=== PATIENT | female | born 1970 | race Hispanic/Latino ===

== ENCOUNTER 2022-01-16 18:39 | Emergency (ER) | payer SELFPAY ==
[2022-01-16 20:43] VITALS: BP 132/78
--- NOTE | 2022-01-16 21:27 | Emergency Department Report ---
ED Rash HPI - HPI Chief Complaint: Skin Rash Stated Complaint: POSSIBLE SHINGLES Duration: 3 Days Location: Neck, Chest, Back, Abdomen Rash Symptoms: Yes Itching, No Facial Swelling, No Tongue/Oral Swelling, No Breathing Difficulties, No Choking Sensation, No Wheezing/Dyspnea, No Peeling, No Blistering, No Fever, No Lightheaded, No Malaise, No Myalgias Severity: moderate Other History: 51-year-old female sent to the ED with rash noted to her her chest abdomen and back area x3 days. She states that her son has shingles. Patient states that she has been using [id number] Benadryl for the itching with relief. She states that she had chickenpox as a child. She states that rash is painful and has been taking Tylenol for the pain. No acute distress noted. No ill appearance noted. Patient denies any headache, fever, paresthesia or photophobia. ED Review of Systems ROS: Stated complaint: POSSIBLE SHINGLES Other details as noted in HPI Constitutional: denies: chills, fever Eyes: denies: eye pain, eye discharge, vision change ENT: denies: ear pain, throat pain Respiratory: denies: cough, shortness of breath, wheezing Cardiovascular: denies: chest pain, palpitations Endocrine: no symptoms reported Gastrointestinal: denies: abdominal pain, nausea, diarrhea Genitourinary: denies: urgency, dysuria, discharge Musculoskeletal: denies: back pain, joint swelling, arthralgia Skin: rash, lesions Neurological: denies: headache, weakness, paresthesias Psychiatric: denies: anxiety, depression Hematological/Lymphatic: denies: easy bleeding, easy bruising ED Past Medical Hx - Social History Smoking Status: Current Every Day Smoker Substance Use Type: Alcohol - Medications Home Medications: Home Medications Medication Instructions Recorded Confirmed Last Taken Type Valacyclovir HCl [Valacyclovir] 1,000 mg PO TID 7 Days #21 tab 01/16/22 Unknown Rx Rash Exam - Exam General: Vital signs noted. No distress. Alert and acting appropriately. HEENT: No Periorbital Edema, No Conjuctival Injection, No Chemosis, No Perioral Edema, No Tongue Edema, No Uvular Edema, No Compromised Airway, No Drooling Lungs: Yes Good Air Exchange (Normal Breath Sounds), No Wheezes, No Ronchi, No Stridor, No Cough, No Labored Respirations, No Retractions, No Use of Accessory Muscles, No Other Abnormal Lung Sounds Heart: Yes Regular, No Murmur Skin: Yes Maculopapular Rash, Yes Erythema, No Urticarial Rash, No Morbilliform rash, No Bulla(e), No Excoriations, No Weeping, No Tenderness, No Edema, No Encrustations, No Other Other: Positive: Abdomen Normal, Neurologic Normal, Musculoskeletal Normal ED Course Vital Signs 01/16/22 20:09 Temperature 98.8 F Pulse Rate 89 Respiratory 18 Rate Blood Pressure 132/78 O2 Sat by Pulse 97 Oximetry ED Medical Decision Making - Medical Decision Making 51-year-old female sent to the ED with rash noted to her her chest abdomen and back area x3 days. She states that her son has shingles. Patient states that she has been using [id number] Benadryl for the itching with relief. She states that she had chickenpox as a child. She states that rash is painful and has been taking Tylenol for the pain. No acute distress noted. No ill appearance noted. Patient denies any headache, fever, paresthesia or photophobia. Physical examination show vesicle on the upper and trunks of the abdomen ,chest, and the back area. Rechecked the patient is resting quietly quietly and comfortable and feeling better. I discussed the results of diagnostic study, my clinical impression and the plan for further treatment with the patient. Patient agrees with plan and discharge at this present time. All question addressed. I have given the patient instruction regarding a diagnosis ,expectation ,follow- up and return precaution. I explained to the patient that emergent condition may arise and to return to the ED for new worsen and any new persisting condition. I have explained the importance of following up with the primary care physician or referral physician listed below has instructed. The patient verbalized understanding of discharge instruction. Critical care attestation.: If time is entered above; I have spent that time in minutes in the direct care of this critically ill patient, excluding procedure time. ED Disposition Clinical Impression: Shingles rash Qualifiers: Herpes zoster complications: unspecified herpes zoster complication Qualified Code(s): B02.8 - Zoster with other complications Disposition: HOME / SELF CARE / HOMELESS Is pt being admited?: No Does the pt Need Aspirin: No Condition: Stable Instructions: Shingles, [id number] Additional Instructions: Take medication as prescribed Return to the ED for any worsening symptom Prescriptions: Valacyclovir HCl [Valacyclovir] 1,000 mg PO TID 7 Days #21 tab Referrals: [facility] [Provider Group] - 3-5 Days Forms: Work/School Release Form(ED)
== END 2022-01-16 22:18 | disposition home or self-care (01) ==
LOC: ED 18:39
DX: B02.9 Zoster without complications (principal); F17.200 Nicotine dependence, unspecified, uncomplicated; Z72.89 Other problems related to lifestyle
CPT/HCPCS: 99282